=== PATIENT | female | born 1975 | race Caucasian/White ===

== ENCOUNTER 2021-10-20 13:53 | Emergency (ER) | payer MEDICAID, OTHER ==
[~2021-10-20] VITALS: Ht 172.7 cm; Wt 104.5 kg
[~2021-10-20 13:53] MED LIST: DSS100 PO; PERCT PO
[2021-10-20 14:39] LABS: COVID AG,FIA SOURCE NASAL SWAB
[2021-10-20 16:26] VITALS: BP 123/66
== END 2021-10-20 16:59 | disposition home or self-care (01) ==
LOC: EMS 13:53
DX: R43.0 Anosmia (principal); R43.2 Parageusia; F12.90 Cannabis use, unspecified, uncomplicated; Z20.822 Contact with and (suspected) exposure to COVID-19
CPT/HCPCS: 99283

== ENCOUNTER 2024-05-12 15:54 | Emergency (ER) | payer OTHER ==
[~2024-05-12] VITALS: Ht 172.7 cm; Wt 109.1 kg
[2024-05-12 16:08] VITALS: BP 156/69; PULSE 110; RESP 18; TEMP 98.8; O2SAT 97
[2024-05-12 16:25] LABS: COVID AG,FIA SOURCE NASAL SWAB
[2024-05-12 16:51] LABS: INFLUENZA TYPE B NEGATIVE FOR TYPE B (NEGATIVE); SARS-COV2 (COVID) ANTIGEN,FIA Negative (Negative)
[2024-05-12 16:56] LABS: INFLUENZA TYPE A POSITIVE FOR TYPE A (NEGATIVE)
[2024-05-12] MEDS ORDERED: OSEL75CA45 PO (17:56)
== END 2024-05-12 18:07 | disposition home or self-care (01) ==
LOC: EMS 15:54
DX: J11.1 Influenza due to unidentified influenza virus with other respiratory manifestations (principal); I10 Essential (primary) hypertension; Z90.49 Acquired absence of other specified parts of digestive tract; Z20.822 Contact with and (suspected) exposure to COVID-19
CPT/HCPCS: 87804; 99283